=== PATIENT | female | born 1940 | race Caucasian/White ===

== ENCOUNTER → 2016-10-26 | Outpatient (CLI) | payer MEDICARE, OTHER ==
--- NOTE | 2016-10-26 14:00 | CT ---
EXAM DESCRIPTION: CT HEAD WITHOUT IV CONTRAST CLINICAL HISTORY: HEADACHE COMPARISON: None available TECHNIQUE: Non contrast cranial CT was performed. FINDINGS: Ventricles and sulci are unremarkable. No abnormal extra-axial fluid. There is no hemorrhage or mass. There are no white matter abnormalities noted on today's study. The calvarium is intact. The visualized paranasal sinuses and the mastoids are clear. IMPRESSION: Today's CT is essentially unremarkable with no findings to account for patient's headache. Electronically signed by: Som Bruno MD 10/26/2016 13:58
--- NOTE | 2016-10-26 14:53 | US ---
EXAM DESCRIPTION: US CAROTID DOPPLER BILATERAL CLINICAL HISTORY: CAROTID BRUIT COMPARISON: None Available. TECHNIQUE: Carotid Doppler ultrasound was performed. Is Consultant grayscale, color Doppler and spectral Doppler images were saved to the patient's medical record. FINDINGS: Minimal atherosclerotic plaque noted within bilateral distal common carotid arteries and proximal internal carotid arteries. The peak systolic velocity of the right common carotid artery is 86, the left is 1 L 1. The peak systolic velocity of the right internal carotid artery is 114, the left is 127. Antegrade flow within bilateral vertebral arteries. IMPRESSION: Elevated velocity noted within the left internal carotid artery. This is compatible with stenosis measuring 50-69% within the left carotid system. Atherosclerotic disease results in 1-49% stenosis of the right carotid system. Electronically signed by: Som Bruno MD 10/26/2016 14:52
== END ==
LOC: CT 13:18
PROVIDERS: ATTEND Family Medicine
DX: R51 Headache (principal); I65.21 Occlusion and stenosis of right carotid artery

== ENCOUNTER → 2016-11-06 | Outpatient (CLI) | payer MEDICARE, OTHER ==
--- NOTE | 2016-11-06 11:38 | CT ---
EXAM DESCRIPTION: Neck CT. CLINICAL HISTORY: Carotid artery stenosis COMPARISON: October 26, 2015. TECHNIQUE: CT angiogram of the neck was performed. The raw data was manipulated into 3D MIP rotational images of the carotid arteries. Stenosis was calculated using NASCET criteria. FINDINGS: The lung apices are clear. The osseous structures demonstrate degenerative change at C5-6 and C6-7. There is no lymphadenopathy by size criteria within the neck. The tongue, base of tongue and floor of mouth are unremarkable. The epiglottis, bilateral AE folds, true and false cords are symmetrical and unremarkable. The origins of bilateral common carotid arteries are unremarkable. The course and caliber of bilateral common carotid arteries are unremarkable. The right carotid bulb demonstrates only minimal intimal thickening. There is minimal calcified plaque seen within the lateral aspect of the left carotid bulb. There is no significant narrowing on today's exam within bilateral carotid arteries. Bilateral cervical internal carotid arteries demonstrate smooth tapering throughout their courses without evidence of abrupt caliber change to suggest pseudoaneurysm or intimal dissection. No evidence of fibromuscular dysplasia. Atherosclerotic disease seen within bilateral cavernous internal carotid arteries, non flow rate limiting. Limited images of the intracranial vessels demonstrate no aneurysm greater than 3-4 mm in diameter. Bilateral vertebral arteries are codominant and unremarkable. IMPRESSION: Findings on today's exam demonstrate only minimal atherosclerotic disease within the left carotid bulb and minimal intimal thickening within bilateral carotid bulbs. There is no considerable stenosis within bilateral carotid systems. These findings do not support what was found on the ultrasound from October 26, 2015. Degenerative change of cervical spine at C5-6 and C6-7. The remaining study is unremarkable. Electronically signed by: Som Bruno MD 11/06/2016 11:36
== END | disposition home or self-care (01) ==
LOC: CT 08:25
PROVIDERS: ATTEND Family Medicine
DX: I65.21 Occlusion and stenosis of right carotid artery (principal); I25.10 Atherosclerotic heart disease of native coronary artery without angina pectoris

== ENCOUNTER → 2016-12-07 | Outpatient (CLI) | payer MEDICARE, OTHER ==
--- NOTE | 2016-12-07 10:22 | US ---
EXAM DESCRIPTION: Renal Arteries CLINICAL HISTORY: 76 years Female, HYPERTENSION COMPARISON: None. TECHNIQUE: Radius scale, color Doppler and spectral Doppler imaging of the renal arteries was performed as per renal artery stenosis protocol. Stenosis was calculated indirectly based on peak systolic velocity and resistive index in FINDINGS: The mid right renal artery demonstrates a peak systolic velocity of 181 cm/s. The proximal right renal artery demonstrates a peak systolic velocity of 211 cm/s. The left proximal renal artery demonstrates a peak systolic velocity of 262 cm/s. The mid left renal artery demonstrates a peak systolic velocity of 214 cm/s. The distal left renal artery is not visualized. The abdominal aorta demonstrates a peak systolic velocity of 6.3 cm in diameter. IMPRESSION: Today's exam demonstrates suggestion of renal artery stenosis within bilateral renal arteries as there are elevated velocities noted. This could account for patient's hypertension. Additionally there is elongated acceleration time of greater than 0.07 seconds within bilateral renal arteries. Electronically signed by: Som Bruno MD 12/07/2016 10:21 AM TECHNICAL EDITOR
== END ==
LOC: US 07:50
PROVIDERS: ATTEND Family Medicine
DX: I10 Essential (primary) hypertension (principal); N18.4 Chronic kidney disease, stage 4 (severe)

== ENCOUNTER → 2016-12-19 | Outpatient (CLI) | payer MEDICARE, OTHER ==
--- NOTE | 2016-12-19 15:05 | CT ---
EXAM DESCRIPTION: CTA Abdomen CLINICAL HISTORY: Atherosclerosis of renal artery COMPARISON: None Available TECHNIQUE: CTA of the abdomen and Pelvis was performed with IV contrast including 3-D reformatted images. FINDINGS: There is no abdominal aortic aneurysm or dissection. There is fairly advanced stenosis of the proximal aspect of the celiac axis. The superior mesenteric artery is unremarkable. There is calcification at the origin of the right renal artery resulting in moderate short segment stenosis. There is no right renal cortical atrophy. There are paired, somewhat small left renal arteries without focal left renal artery stenosis. Mild left renal cortical thinning is noted. The inferior mesenteric artery is perfused. There are 2 small hepatic cysts. Visualized portions of the GI tract are unremarkable. The exam is otherwise unremarkable for arterial phase technique. IMPRESSION: Calcification at the origin of the right renal artery resulting in moderate right-sided renal artery stenosis. No right renal atrophy. Paired, somewhat small left renal arteries, but no focal left renal artery stenosis. 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 Electronically signed by: Tyron iSnger MD 12/19/2016 3:04 PM CDT
== END | disposition home or self-care (01) ==
LOC: CT 13:11
PROVIDERS: ATTEND Internal Medicine Nephrology
DX: I70.1 Atherosclerosis of renal artery (principal); I10 Essential (primary) hypertension

== ENCOUNTER → 2017-02-06 | Outpatient (CLI) | payer MEDICARE, OTHER | END | disposition home or self-care (01) | LOC: GMAB 10:57 | PROVIDERS: ATTEND Family Medicine | DX: N18.4 Chronic kidney disease, stage 4 (severe) (principal) ==

== ENCOUNTER → 2017-04-27 | Outpatient (CLI) | payer MEDICARE, OTHER | LOC: GMA 13:18 | PROVIDERS: ATTEND Nurse Practitioner Family | DX: N39.0 Urinary tract infection, site not specified (principal) ==

== ENCOUNTER → 2017-06-17 | Outpatient (CLI) | payer MEDICARE, OTHER | END | disposition home or self-care (01) | LOC: GMAB 11:04 | PROVIDERS: ATTEND Family Medicine | DX: E03.9 Hypothyroidism, unspecified (principal) ==

== ENCOUNTER → 2017-06-21 | Outpatient (CLI) | payer MEDICARE, OTHER | END | disposition home or self-care (01) | LOC: GMAB 14:39 | PROVIDERS: ATTEND Family Medicine | DX: M25.531 Pain in right wrist (principal) ==

== ENCOUNTER → 2017-08-01 | Outpatient (CLI) | payer MEDICARE, OTHER ==
--- NOTE | 2017-08-05 17:11 | MAM ---
EXAM DESCRIPTION: 3D Screening BILATERAL : Digital Mammography. CLINICAL HISTORY: 76 years Female SCREENING . No complaints. Remote family history of ovarian cancer. Postmenopausal. Has taken hormone replacement less than 5 years ago. Benign right breast biopsy. COMPARISON: 2-D digital screening bilateral studies on 06/20/2016 and 06/09/2015.. Report from prior examination also reviewed. TECHNIQUE: Bilateral CC and MLO projection full-field images, 3-D tomosynthesis digital mammographic technique. Also bilateral synthesized CC/ MLO full-field images. CAD not utilized. FINDINGS: The breast parenchymal density pattern is: Scattered areas of fibroglandular density. No skin thickening or nipple retraction intramammary lymph node mid right breast. No focal, stellate mass or density, focal asymmetry , and no suspicious microcalcifications bilaterally. Stable mammograms compared to prior study, taking into account differences in mammographic technique IMPRESSION: BI-RADS CATEGORY: 2 - BENIGN FINDINGS. FOLLOW UP: Routine digital bilateral screening, one year interval from July 2017. Written communication explaining the IMPRESSION and follow-up, will be mailed to the patient and referring health care provider. According to the [employer], yearly mammograms are recommended starting at age 40 and continuing as long as a woman is in good health. Any breast change noted on a breast self-exam should be reported promptly to the patient's healthcare provider. Breast MRI is recommended for women with an approximately 20-25% or greater lifetime risk of breast cancer, including women with a strong family history of breast or ovarian cancer and women who have been treated for Hodgkin's disease. A negative mammographic report should not delay tissue diagnosis in patients with significant clinical history or physical findings. Extremely dense breast tissue limits the sensitivity of digital mammography. Electronically signed by: Narinder Dennison MD 08/05/2017 5:09 PM [facility]
== END ==
LOC: MAMMO 12:35
PROVIDERS: ATTEND Obstetrics & Gynecology
DX: Z12.31 Encounter for screening mammogram for malignant neoplasm of breast (principal)
CPT/HCPCS: 77063; G0202

== ENCOUNTER → 2018-06-16 | Outpatient (CLI) | payer MEDICARE, OTHER | LOC: GMAE 10:39 | PROVIDERS: ATTEND Family Medicine | DX: E03.9 Hypothyroidism, unspecified (principal) ==

== ENCOUNTER → 2018-08-04 | Outpatient (CLI) | payer MEDICARE, OTHER ==
--- NOTE | 2018-08-05 21:44 | MAM ---
EXAM DESCRIPTION: 3D Screening BILATERAL : Digital Mammography. CLINICAL HISTORY: 77 years Female SCREENING . No complaints or personal history of breast cancer. Remote family history of breast cancer. Childbirth. Postmenopausal. Taking HRT 5 or more years ago. Benign right breast biopsy.. Lifetime risk of developing breast cancer (Tyrer-Cuzick model)(%): 2.8. COMPARISON: Bilateral screening digital breast tomosynthesis 08/01/2017. TECHNIQUE: Bilateral CC and MLO projection full-field images, digital tomosynthesis mammographic technique. Bilateral digital 2-D full-field MLO images. CAD not available for tomosynthesis or 2-D images. FINDINGS: The breast parenchymal density pattern is: Scattered areas of fibroglandular density. No skin thickening or nipple retraction. Intramammary lymph node middle third of the right breast. No new focal, stellate mass or density, focal asymmetry , and no suspicious microcalcifications bilaterally. Stable mammograms compared to prior study. IMPRESSION: Benign exam. BIRAD CATEGORY: 2 BENIGN FINDINGS. RECOMMENDATIONS: FOLLOW UP: Routine digital bilateral mammographic screening, one year interval from July 2018. Written communication explaining the IMPRESSION and follow-up, will be mailed to the patient and referring health care provider. According to the [employer], yearly mammograms are recommended starting at age 40 and continuing as long as a woman is in good health. Any breast change noted on a breast self-exam should be reported promptly to the patient's healthcare provider. Breast MRI is recommended for women with an approximately 20-25% or greater lifetime risk of breast cancer, including women with a strong family history of breast or ovarian cancer and women who have been treated for Hodgkin's disease. A negative mammographic report should not delay tissue diagnosis in patients with significant clinical history or physical findings. Extremely dense breast tissue limits the sensitivity of digital mammography. 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
== END ==
LOC: MAMMO 13:06
DX: Z12.31 Encounter for screening mammogram for malignant neoplasm of breast (principal)

== ENCOUNTER → 2018-11-18 | Emergency (ER) | payer MEDICARE, OTHER | LOC: ER 22:45 | DX: I10 Essential (primary) hypertension (principal); Z53.21 Procedure and treatment not carried out due to patient leaving prior to being seen by health care provider ==

== ENCOUNTER → 2018-12-16 | Outpatient (CLI) | payer MEDICARE, OTHER | LOC: GMAE 11:02 | PROVIDERS: ATTEND Family Medicine | DX: E03.9 Hypothyroidism, unspecified (principal) ==

== ENCOUNTER 2018-12-21 16:10 | Emergency (ER) | payer MEDICARE, OTHER ==
--- NOTE | 2018-12-21 16:42 | ED.PDOC ---
History of Present Illness - General Chief Complaint: Respiratory Problem Stated Complaint: wheezing,shortness of breath Time Seen by Provider: 12/21/18 16:35 Source: patient, RN notes reviewed, Vital Signs reviewed Additional Information: 78 YEAR OLD PRESENTS WITH THE FOLLOWING SYMPTOMS SHE WAS TREATED FOR UTI WITH BACTRIM BY HER PHYSICIAN DR JASSO IT APPEARS SHE WAS GIVEN BACTRIM DS STARTED 4 DAYS AGO SHE HAS BEEN TAKING PRESCRIBED SHE NOW THINKS SHE IS ALLERGIC TO THAT MEDICATION SHE HAS EXPERIENCED CHEST CONGESTION BUT NO DIFFICULTY BREATHING ANXIETY LAST 2 NIGHTS THAT SHE COULD NOT SLEEP WELL BUT SHE HAS NO SKIN RASH NO SWELLING NO REDNESS NO DIFFICULTY SWALLOWING PE ALERT ORIENTED ANXIOUS ORAL EXAM NO SWELLING NO EDEMA NORAL UPPER AIRWAY LUNGS CLEAR NO WHEEZING OR RHONCHI ABD SOFT NON TENDER NO CVA TENDERNESS 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 NON FOCAL SKIN NORMAL NO RASH - History of Present Illness Timing/Duration: 24 hours Severity: mild Improving Factors: nothing Associated Symptoms: denies symptoms Allergies/Adverse Reactions: Allergies Codeine Allergy (Verified 12/15/13 09:16) Hydrocodone [From Vicodin] Allergy (Verified 12/15/13 09:16) Ketorolac Tromethamine [From Toradol] Allergy (Verified 12/15/13 09:16) Home Medications: Ambulatory Orders Aspirin [Aspirin 81] 162 mg PO DAILY 12/15/13 Calcium 1 tab PO DAILY 12/15/13 Levothyroxine Sodium 100 mcg PO DAILY 12/15/13 Multiple Vitamins W/ Minerals [Megavite Fruits & Veggies] 1 tab PO DAILY 12/15/13 Losartan Potassium 100 mg PO DAILY #0 12/16/13 Flaxseed Oil-Fish Oil-Borage O [Fish/Flax/Borage Oils] 1 cap PO DAILY 01/03/15 Propranolol LA [Inderal LA] 60 mg PO DAILY 01/03/15 Estrogens, Conjugated Vaginal [Premarin] 0.625 mg VA BIW 02/06/16 Review of Systems - Review of Systems Constitutional: States: no symptoms reported EENTM: States: no symptoms reported Respiratory: States: no symptoms reported Cardiology: States: no symptoms reported Gastrointestinal/Abdominal: States: no symptoms reported Genitourinary: States: no symptoms reported Skin: States: no symptoms reported Neurological: States: no symptoms reported Endocrine: States: no symptoms reported Hematologic/Lymphatic: States: no symptoms reported Past Medical History (General) - Patient Medical History Hx Asthma: Yes Hx of COPD: No Hx Cardiac Disorders: Yes - Mitral Valve Problem Hx Congestive Heart Failure: No Hx Hypertension: Yes Hx Thyroid Disease: Yes Hx Diabetes: No Hx MRSA: No Surgical History: cholecystectomy, Hysterectomy - Vaccination History Hx Tetanus, Diphtheria Vaccination: No Hx Influenza Vaccination: Yes Hx Pneumococcal Vaccination: Yes - Social History Hx Tobacco Use: Yes Hx Alcohol Use: No Family Medical History - Family History Mother Family History: Unknown Physical Exam - Physical Exam General Appearance: Alert, Comfortable Eye Exam: bilateral normal Ears, Nose, Throat: hearing grossly normal, normal ENT inspection, normal pharynx Neck: non-tender, full range of motion, supple Respiratory: chest non-tender, lungs clear, normal breath sounds, no respiratory distress, no accessory muscle use Cardiovascular/Chest: normal peripheral pulses, regular rate, rhythm, no edema, no gallop, no JVD Peripheral Pulses: radial,right: 2+, radial,left: 2+, femoral,right: 2+, femoral,left: 2+ Gastrointestinal/Abdominal: normal bowel sounds, non tender, soft, no organomegaly 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 Copy, Patient Portal Self Enrollment Diet: resume usual diet Referrals: PAVEL JASSO MD [Primary Care Provider] - 1-2 Weeks Home Medications: Ambulatory Orders Aspirin [Aspirin 81] 162 mg PO DAILY 12/15/13 Calcium 1 tab PO DAILY 12/15/13 Levothyroxine Sodium 100 mcg PO DAILY 12/15/13 Multiple Vitamins W/ Minerals [Megavite Fruits & Veggies] 1 tab PO DAILY 12/15/13 Losartan Potassium 100 mg PO DAILY #0 12/16/13 Flaxseed Oil-Fish Oil-Borage O [Fish/Flax/Borage Oils] 1 cap PO DAILY 01/03/15 Propranolol LA [Inderal LA] 60 mg PO DAILY 01/03/15 Estrogens, Conjugated Vaginal [Premarin] 0.625 mg VA BIW 02/06/16 Comments: PT ADVISED TO FOLLOW UP WITH HER MD SUGGESTED TO DRINK FLUIDS CRANBERRY JUICE PERHAPS TAKE HALF THE DOSE OF BACTRIM TILL HER PCP DOCTORS ADVICE SHE THINKS BACTRIM DS IS TOO MUCH FOR HER
[2018-12-21 18:11] VITALS: BP 163/64; TEMP 98.4; O2SAT 98
== END 2018-12-21 18:10 | disposition home or self-care (01) ==
LOC: ER 16:10
DX: N39.0 Urinary tract infection, site not specified (principal); I05.9 Rheumatic mitral valve disease, unspecified; J45.909 Unspecified asthma, uncomplicated; I10 Essential (primary) hypertension; E07.9 Disorder of thyroid, unspecified; Z79.82 Long term (current) use of aspirin; Z79.899 Other long term (current) drug therapy; Z87.891 Personal history of nicotine dependence; Z88.5 Allergy status to narcotic agent

== ENCOUNTER → 2019-01-14 | Outpatient (CLI) | payer MEDICARE, OTHER ==
[~2019-01-14] MED LIST: LEVALBUTEROL NEBS 0.63 MG/3 ML VIAL NEB ONE
== END ==
LOC: RESP 09:58
PROVIDERS: ATTEND Family Medicine
DX: R06.02 Shortness of breath (principal)
CPT/HCPCS: 94060; J7614

== ENCOUNTER 2019-05-11 11:09 | Emergency (ER) | payer MEDICARE, OTHER ==
[2019-05-11 11:14] VITALS: TEMP 96.8
[2019-05-11] MEDS ORDERED: SODIUM CHLORIDE 0.9% 500ML 500 ML IVS ONE (11:20)
--- NOTE | 2019-05-11 11:39 | RAD ---
EXAM DESCRIPTION: Chest,1 View CLINICAL HISTORY: 78 years Female, pain COMPARISON: January 12, 2019. TECHNIQUE: AP portable chest. FINDINGS: Lungs are clear. No consolidation. Heart normal size. Elevation of the right hemidiaphragm is new since comparison IMPRESSION: New onset elevation right hemidiaphragm. Recommend CT chest with contrast. Electronically signed by: Jayson Lindsay MD 05/11/2019 11:38 AM CDT
--- NOTE | 2019-05-11 12:02 | ED.PDOC ---
History of Present Illness - General Chief Complaint: Chest Pain/OR Stated Complaint: Chest pressure Time Seen by Provider: 05/11/19 11:13 Source: patient Exam Limitations: no limitations - History of Present Illness Initial Comments: [place] G[place]a 78 y/o female stated that she had on and off chest pressure the last 2 1/2 days lasting for about 15 -20 minutes then with radiation to her back and lower abdomen and with pain on deep breathing no cough no diaphoresis..Then on waking up this am chest pressure not going away took one NTG after calling his business employment specialist in . Scheduled for cardiac cath 13 May 2019 in ;Had positive nuclear stress test 07 May 2019.Had cardiac cath in 2013-no major blockage noted at that time done by Dr. Caruso. Timing/Duration: days - 2 1 Severity: moderate Location: central Activities at Onset: activity Prior Chest Pain/Cardiac Workup: cardiac cath - 2013, stress test - scheduled Improving Factors: rest Worsening Factors: movement Nitro Today/Relief: 0.4 mg x 1, provided at home, mild relief Aspirin Treatment Today: 81 mg x 4 Associated Symptoms: other - see hpi Allergies/Adverse Reactions: Allergies Codeine Allergy (Verified 12/15/13 09:16) Hydrocodone [From Vicodin] Allergy (Verified 12/15/13 09:16) Ketorolac Tromethamine [From Toradol] Allergy (Verified 12/15/13 09:16) Home Medications: Ambulatory Orders Aspirin [Aspirin 81] 81 mg PO DAILY 12/15/13 Levothyroxine Sodium 100 mcg PO DAILY 12/15/13 Multiple Vitamins W/ Minerals [Megavite Fruits & Veggies] 1 tab PO DAILY 12/15/13 Flaxseed Oil-Fish Oil-Borage O [Fish/Flax/Borage Oils] 1 cap PO DAILY 01/03/15 Propranolol LA [Inderal LA] 60 mg PO DAILY 01/03/15 Estrogens, Conjugated Vaginal [Premarin] 0.625 mg VA BIW 02/06/16 Atorvastatin Calcium [Lipitor] 10 mg PO DAILY 05/11/19 Clopidogrel Bisulfate [Plavix] 75 mg PO DAILY 05/11/19 Omeprazole 20 mg PO BID 05/11/19 Pantoprazole Sodium 40 mg PO DAILY 05/11/19 Sucralfate 1 gm PO ACHS 05/11/19 Review of Systems - Review of Systems Constitutional: States: no symptoms reported EENTM: States: no symptoms reported Respiratory: States: no symptoms reported Cardiology: States: see HPI Gastrointestinal/Abdominal: States: no symptoms reported Genitourinary: States: no symptoms reported Musculoskeletal: States: no symptoms reported Skin: States: no symptoms reported Neurological: States: no symptoms reported Endocrine: States: no symptoms reported All other Systems: Reviewed and Negative, No Change from Baseline Past Medical History (General) - Patient Medical History Hx Stroke: No Hx Asthma: Yes Hx of COPD: No Hx Cardiac Disorders: Yes - Mitral valve leaks Hx Congestive Heart Failure: No Hx Hypertension: Yes Hx Thyroid Disease: Yes Hx Diabetes: No Hx Cancer: Yes - Skin CA Hx MRSA: No Surgical History: cholecystectomy, Hysterectomy, other - cataract - Vaccination History Hx Tetanus, Diphtheria Vaccination: No Hx Influenza Vaccination: Yes - 2018 Hx Pneumococcal Vaccination: Yes - Social History Hx Tobacco Use: No Hx Alcohol Use: No Hx Physical Abuse: No Hx Emotional Abuse: No - Activities of Daily Living Patient Lives Alone: No Grooming Ability: Independent Eating (Feeding) Ability: Independent Toileting Ability: Independent Family Medical History - Family History Mother Family History: Unknown Living Status: Hx Cardiac Disease: Yes - dad-OR 78 y/o Physical Exam - Physical Exam General Appearance: Alert, Comfortable, No apparent distress Eyes, Ears, Nose, Throat Exam: normal ENT inspection, pharynx normal Neck: non-tender, full range of motion, supple, normal inspection Respiratory: chest non-tender, lungs clear, normal breath sounds, no respiratory distress Cardiovascular/Chest: normal peripheral pulses, regular rate, rhythm, no murmur Peripheral Pulses: radial,right: 2+, radial,left: 2+ Gastrointestinal/Abdominal: normal bowel sounds, non tender, soft, no organomegaly Extremity: non-tender, no pedal edema, no calf tenderness Neurologic: alert, oriented x 3 Skin Exam: normal color, warm/dry Progress - Progress Progress: 05/11/19 12:07 Vital Signs - 24 hr 05/11/19 11:13 Temperature 96.8 F L Pulse Rate [ 66 Left Radial] Respiratory 18 Rate Blood Pressure 103/82 [Left Arm] O2 Sat by Pulse 95 Oximetry - Results/Orders Results/Orders: 05/11/19 11:55 CARDIAC ENZYME GROUP Stat HEPATIC FUNCTION PANEL Stat 05/11/19 12:00 EKG STAT 05/11/19 13:00 Be Our Guest Tray (BOG) ONCE 05/11/19 13:20 URINALYSIS Stat Laboratory Results - last 24 hr 05/11/19 05/11/19 05/11/19 11:27 11:27 11:27 WBC 4.7 L RBC 4.65 Hgb 14.7 Hct 42.7 MCV 91.9 MCH 31.7 H MCHC 34.5 RDW 12.9 Plt Count 187 PT 10.3 INR 1.03 PTT (SP) 20.5 L D-Dimer, Quantitative 0.32 Total Bilirubin Direct Bilirubin Indirect Bilirubin AST ALT Alkaline Phosphatase Creatine Kinase Troponin I Serum Total Protein Albumin 05/11/19 11:55 WBC RBC Hgb Hct MCV MCH MCHC RDW Plt Count PT INR PTT (SP) D-Dimer, Quantitative Total Bilirubin 0.8 Direct Bilirubin 0.1 Indirect Bilirubin 0.7 AST 23 ALT 14 Alkaline Phosphatase 52 Creatine Kinase 25 L Troponin I 0.01 Serum Total Protein 6.1 L Albumin 3.9 - EKG/XRAY/CT EKG: Sinus, no ST T wave changes Comments: HR-67 XRAY: chest - elevation right hemidiapragm. Departure - Departure Clinical Impression: Chest pressure, Abnormal nuclear cardiac imaging test Time of Disposition: 14:19 Disposition: Transfer to Hospital Condition: Fair Departure Forms: Patient Portal Self Enrollment Referrals: PAVEL JASSO MD [Primary Care Provider] - 1-2 Weeks Home Medications: Ambulatory Orders Aspirin [Aspirin 81] 81 mg PO DAILY 12/15/13 Levothyroxine Sodium 100 mcg PO DAILY 12/15/13 Multiple Vitamins W/ Minerals [Megavite Fruits & Veggies] 1 tab PO DAILY 12/15/13 Flaxseed Oil-Fish Oil-Borage O [Fish/Flax/Borage Oils] 1 cap PO DAILY 01/03/15 Propranolol LA [Inderal LA] 60 mg PO DAILY 01/03/15 Estrogens, Conjugated Vaginal [Premarin] 0.625 mg VA BIW 02/06/16 Atorvastatin Calcium [Lipitor] 10 mg PO DAILY 05/11/19 Clopidogrel Bisulfate [Plavix] 75 mg PO DAILY 05/11/19 Omeprazole 20 mg PO BID 05/11/19 Pantoprazole Sodium 40 mg PO DAILY 05/11/19 Sucralfate 1 gm PO ACHS 05/11/19 Transfer to Outside Facility - Transfer Information Accepting Provider:: Dr. Santillan-Stretch Machine Operator Accepting Facility: [facility] Reason for Transfer: required specialist not available - KEY ENTRY OPERATOR
[2019-05-11 15:36] VITALS: BP 152/62; O2SAT 94
== END 2019-05-11 14:50 | disposition short-term general hospital (02) ==
LOC: ER 11:09
DX: R07.89 Other chest pain (principal); R94.39 Abnormal result of other cardiovascular function study; I05.8 Other rheumatic mitral valve diseases; E07.9 Disorder of thyroid, unspecified; I10 Essential (primary) hypertension; J45.909 Unspecified asthma, uncomplicated; Z85.828 Personal history of other malignant neoplasm of skin; Z79.82 Long term (current) use of aspirin; Z79.899 Other long term (current) drug therapy; Z88.5 Allergy status to narcotic agent
CPT/HCPCS: 71045; 80076; 81001; 82550; 82553; 84484; 85379; 85610; 85730; 93005; J7040

== ENCOUNTER → 2019-08-05 | Outpatient (CLI) | payer MEDICARE, OTHER ==
--- NOTE | 2019-08-10 16:05 | MAM ---
EXAM DESCRIPTION: 3D Screening BILATERAL : Digital Mammography. CLINICAL HISTORY: 78 years Female ANNUAL SCREENING . No complaints. No personal or family history of breast cancer. Menarche age 11. Childbirth. Postmenopausal unknown duration. HRT 5 or more years ago. Prior benign right breast biopsy.. Lifetime risk of developing breast cancer (Tyrer-Cuzick model)(%): 3.2. COMPARISON: Bilateral screening digital breast tomosynthesis 04 August 2018 and 01 August 2017. TECHNIQUE: Bilateral CC and MLO projection full-field images, digital tomosynthesis mammographic technique. Bilateral digital 2-D full-field MLO images. CAD not available for tomosynthesis or 2-D images. FINDINGS: The breast parenchymal density pattern is: Scattered areas of fibroglandular density. No skin thickening or nipple retraction. Stable nodular density anterior upper lateral quadrant right breast. No new focal, stellate mass or density, focal asymmetry , and no suspicious microcalcifications bilaterally. Stable mammograms compared to prior study. IMPRESSION: Benign exam. BIRAD CATEGORY: 2 BENIGN FINDINGS. RECOMMENDATIONS: FOLLOW UP: Routine digital bilateral mammographic screening, one year interval from July 2019. Written communication explaining the IMPRESSION and follow-up, will be mailed to the patient and referring health care provider. According to the [employer], yearly mammograms are recommended starting at age 40 and continuing as long as a woman is in good health. Any breast change noted on a breast self-exam should be reported promptly to the patient's healthcare provider. Breast MRI is recommended for women with an approximately 20-25% or greater lifetime risk of breast cancer, including women with a strong family history of breast or ovarian cancer and women who have been treated for Hodgkin's disease. A negative mammographic report should not delay tissue diagnosis in patients with significant clinical history or physical findings. Extremely dense breast tissue limits the sensitivity of digital mammography. 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
== END ==
LOC: MAMMO 11:30
PROVIDERS: ATTEND Obstetrics & Gynecology
DX: Z12.31 Encounter for screening mammogram for malignant neoplasm of breast (principal)

== ENCOUNTER → 2019-08-11 | Outpatient (CLI) | payer MEDICARE, OTHER | LOC: GMAE 10:46 | PROVIDERS: ATTEND Family Medicine | DX: E03.9 Hypothyroidism, unspecified (principal); I10 Essential (primary) hypertension ==

== ENCOUNTER 2019-11-21 01:53 | Emergency (ER) | payer MEDICARE, OTHER ==
[2019-11-21] MEDS ORDERED: SODIUM CHLORIDE 0.9% IVS ONE (02:22)
[2019-11-21] MEDS ORDERED: ACETAMINOPHEN 500 MG TAB PO ONE (02:22)
[2019-11-21] MEDS ORDERED: SODIUM CHLORIDE 0.9% (FLUSH) 10 ML SYG IV PRN (02:22)
--- NOTE | 2019-11-21 02:30 | ED.PDOC ---
History of Present Illness - General Chief Complaint: General Stated Complaint: trouble urinating and shortness of breath Time Seen by Provider: 11/21/19 02:21 Source: patient Exam Limitations: no limitations - History of Present Illness Initial Comments: 79 yo F who presents for not feeling well. States she was dx with a UTI yesterday, prescribed macrobid, associated urinary frequency, dysuria. Started to feel ill this evening and very uncomfortable. On arrival pt was noted to be have mild tachypnea after using the bathroom for a urine sample, when placed on monitor she was saturating 88% on RA, pt states at that time she was having SOB. Denies SOB now that she is on oxygen and oxygen saturation wnl. Pt is unsure of fever at home. Recent loose stool. Reports chronic cough with extensive workup that has been unremarkable. Hx of kidney stone. Recent cath that showed 40% blockage "in the back of my heart." Denies hx of ND, DVT, PE. Denies congestion, CP, abd pain, n/v, hematuria, edema, flank pain. Allergies/Adverse Reactions: Allergies Codeine Allergy (Verified 11/21/19 02:10) Hydrocodone [From Vicodin] Allergy (Verified 11/21/19 02:10) Ketorolac Tromethamine [From Toradol] Allergy (Verified 11/21/19 02:10) Home Medications: Ambulatory Orders Aspirin [Aspirin 81] 81 mg PO DAILY 12/15/13 Levothyroxine Sodium 100 mcg PO DAILY 12/15/13 Multiple Vitamins W/ Minerals [Megavite Fruits & Veggies] 1 tab PO DAILY 12/15/13 Flaxseed Oil-Fish Oil-Borage O [Fish/Flax/Borage Oils] 1 cap PO DAILY 01/03/15 Propranolol LA [Inderal LA] 60 mg PO DAILY 01/03/15 Estrogens, Conjugated Vaginal [Premarin] 0.625 mg [place] BIW 02/06/16 Atorvastatin Calcium [Lipitor] 10 mg PO DAILY 05/11/19 Clopidogrel Bisulfate [Plavix] 75 mg PO DAILY 05/11/19 Omeprazole 20 mg PO BID 05/11/19 Pantoprazole Sodium 40 mg PO DAILY 05/11/19 Sucralfate 1 gm PO ACHS 05/11/19 Albuterol Inhaler [Ventolin Hfa Inhaler] 2 puff INH Q4H #1 inh 11/21/19 Cefdinir [Omnicef] 300 mg PO BID 10 Days cap 11/21/19 Review of Systems - Review of Systems Constitutional: States: fever - ?unsure. Denies: diaphoresis EENTM: Denies: ear pain, nose congestion, throat pain Respiratory: States: cough, short of breath Cardiology: Denies: chest pain, palpitations, syncope Gastrointestinal/Abdominal: States: diarrhea. Denies: abdominal pain, constipation, nausea, vomiting Genitourinary: States: dysuria, frequency Musculoskeletal: Denies: back pain, neck pain Skin: Denies: lesions, rash Neurological: Denies: headache, numbness, weakness Endocrine: Denies: increased thirst, increased urine Past Medical History (General) - Patient Medical History Hx Seizures: No Hx Stroke: No Hx Dementia: No Hx Asthma: Yes Hx of COPD: No Hx Cardiac Disorders: Yes - Mitral valve leaks Hx Congestive Heart Failure: No Hx Pacemaker: No Hx Hypertension: Yes Hx Thyroid Disease: Yes Hx Diabetes: No Hx Gastroesophageal Reflux: No Hx Renal Disease: No Hx Cancer: Yes - Skin CA Hx of HIV: No Hx Hepatitis C: No Hx MRSA: No Surgical History: cholecystectomy, Hysterectomy - Vaccination History Hx Tetanus, Diphtheria Vaccination: Yes Hx Influenza Vaccination: Yes Hx Pneumococcal Vaccination: Yes Immunizations Up to Date: Yes - Social History Hx Tobacco Use: No Hx Alcohol Use: No Hx Substance Use: No Hx Substance Use Treatment: No Hx Depression: No Feels Threatened In Home Enviroment: No Feels Threatened In a Relationship: No Hx Physical Abuse: No Hx Emotional Abuse: No Hx Suspected Abuse: No - Activities of Daily Living Hospice Agency (if applicable):: None - Female History Patient is a Female of Child Bearing Age (10 -59 yrs old): No Family Medical History - Family History Mother Family History: Unknown Living Status: Hx Cardiac Disease: Yes - dad-ND 79 y/o Physical Exam - Physical Exam General Appearance: Alert, Comfortable, No apparent distress, Well Developed, Well Nourished Eye Exam: bilateral normal Ears, Nose, Throat: normal ENT inspection Neck: full range of motion, supple Respiratory: lungs clear, normal breath sounds, no respiratory distress, no accessory muscle use Cardiovascular/Chest: normal peripheral pulses, regular rate, rhythm, no edema, no gallop, no JVD, no murmur Peripheral Pulses: radial,right: 2+, radial,left: 2+ Gastrointestinal/Abdominal: normal bowel sounds, non tender, soft, no organomegaly, no pulsatile mass, other - No guarding, rebound, distension. Back Exam: normal inspection, no CVA tenderness, no vertebral tenderness Extremity: normal range of motion, non-tender, normal inspection, no pedal edema, no calf tenderness, normal capillary refill Neurologic: no motor/sensory deficits, alert, normal mood/affect, oriented x 3 Skin Exam: normal color, warm/dry Progress - Progress Progress: I have explained and reviewed all results with the pt. Pt well appearing, 93% on RA, will duoneb prior to d/c for comfort. Offered admission, pt and decline. I explained that emergent conditions may arise and to return to the ER for new, worsening, or any persistent conditions. I've explained the importance of f/u for recheck. All questions and concerns addressed at this time. Pt understands and agrees with plan. Pt well appearing, NAD, is stable for discharge. Jolanta Rodriguez MD Emergency Medicine Physician Billing Number [id number] - Results/Orders Results/Orders: 11/21/19 02:15 EKG STAT 11/21/19 02:22 IV Care:Saline Lock per Protoc QSHIFT Telemetry .ONCE Sodium Chloride 0.9% (Flush) [Saline Flush Syringe] 10 ml IV PRN PRN Pulse Ox Stat 11/21/19 02:45 BLOOD CULTURE Stat 11/21/19 04:19 Hold Metformin x 48Hrs [id number] Laboratory Results - last 24 hr 11/21/19 11/21/19 11/21/19 02:20 02:45 02:45 WBC 8.6 RBC 4.40 Hgb 13.7 Hct 40.3 MCV 91.6 MCH 31.1 H MCHC 34.0 RDW 13.1 Plt Count 99 L MPV 9.7 Absolute Neuts (auto) 8.20 H Absolute Lymphs (auto) 0.10 L Absolute Monos (auto) 0.20 Absolute Eos (auto) 0.10 Absolute Basos (auto) 0.00 Neutrophils % 95.1 H Lymphocytes % 1.1 L Monocytes % 2.5 Eosinophils % 1.1 Basophils % 0.2 D-Dimer, Quantitative Sodium 135 Potassium 3.6 Chloride 101 Carbon Dioxide 26 Anion Gap 11.6 L BUN 24 H Creatinine 0.54 L BUN/Creatinine Ratio 44.4 H Random Glucose 130 H Serum Osmolality 275.9 Lactic Acid Calcium 9.4 Total Bilirubin 1.0 AST 53 H ALT 43 Alkaline Phosphatase 67 Troponin I Serum Total Protein 6.2 L Albumin 4.0 Globulin 2.2 L Albumin/Globulin Ratio 1.8 Urine Color Yellow Urine Appearance Clear Urine pH 5.5 Ur Specific [place] 1.020 Urine Protein Negative Urine Glucose (UA) Negative Urine Ketones 15 H Urine Blood Negative Urine Nitrite Negative Urine Bilirubin Negative Urine Urobilinogen 0.2 Ur Leukocyte Esterase Trace H Urine RBC 0 Urine WBC 3-5 H Ur Epithelial Cells 3-5 Urine Bacteria Rare 11/21/19 11/21/19 11/21/19 02:45 02:45 02:45 WBC RBC Hgb Hct MCV MCH MCHC RDW Plt Count MPV Absolute Neuts (auto) Absolute Lymphs (auto) Absolute Monos (auto) Absolute Eos (auto) Absolute Basos (auto) Neutrophils % Lymphocytes % Monocytes % Eosinophils % Basophils % D-Dimer, Quantitative 1440 H* Sodium Potassium Chloride Carbon Dioxide Anion Gap BUN Creatinine BUN/Creatinine Ratio Random Glucose Serum Osmolality Lactic Acid 1.6 Calcium Total Bilirubin AST ALT Alkaline Phosphatase Troponin I 0.02 Serum Total Protein Albumin Globulin Albumin/Globulin Ratio Urine Color Urine Appearance Urine pH Ur Specific [place] Urine Protein Urine Glucose (UA) Urine Ketones Urine Blood Urine Nitrite Urine Bilirubin Urine Urobilinogen Ur Leukocyte Esterase Urine RBC Urine WBC Ur Epithelial Cells Urine Bacteria 11/21/19 11/21/19 05:25 05:25 WBC RBC Hgb Hct MCV MCH MCHC RDW Plt Count MPV Absolute Neuts (auto) Absolute Lymphs (auto) Absolute Monos (auto) Absolute Eos (auto) Absolute Basos (auto) Neutrophils % Lymphocytes % Monocytes % Eosinophils % Basophils % D-Dimer, Quantitative Sodium Potassium Chloride Carbon Dioxide Anion Gap BUN Creatinine BUN/Creatinine Ratio Random Glucose Serum Osmolality Lactic Acid 1.2 Calcium Total Bilirubin AST ALT Alkaline Phosphatase Troponin I 0.03 Serum Total Protein Albumin Globulin Albumin/Globulin Ratio Urine Color Urine Appearance Urine pH Ur Specific [place] Urine Protein Urine Glucose (UA) Urine Ketones Urine Blood Urine Nitrite Urine Bilirubin Urine Urobilinogen Ur Leukocyte Esterase Urine RBC Urine WBC Ur Epithelial Cells Urine Bacteria Microbiology 11/21/19 06:15 Influenza Types A & B (PCR) - Final Nose neg CXR: EXAM DESCRIPTION: Chest,2 Views CLINICAL HISTORY: shortness of breath COMPARISON: 05/11/2019 FINDINGS: Frontal and lateral views of the chest. Cardiomediastinal silhouette: Normal size and contour. Lungs: No consolidation, pneumothorax, or pleural effusion. Bones: No acute osseous abnormality. Minimal elevation of the right hemidiaphragm. Upper abdomen: No abnormality identified. IMPRESSION: 1. No acute pulmonary process identified. Electronically signed by: Harsha Roca 11/21/2019 2:[address] abd/pelvis: CT ABDOMEN AND PELVIS WITH CONTRAST. CLINICAL HISTORY: Abdominal pain. COMPARISON: [None.] TECHNIQUE: Axial CT imaging of the abdomen and pelvis performed with intravenous contrast. Reformatted coronal and sagittal images reviewed. A dose reduction technique was utilized with automated exposure control according to patient size. FINDINGS: Atelectasis/scar in the right lower lobe. Heart is normal in size. There are a few benign-appearing cysts within the liver. The larger is in the left lobe, 1.9 cm. There is no solid mass. There is mild intrahepatic and extra hepatic biliary duct dilatation secondary to post cholecystectomy status. Normal spleen and pancreas. Normal adrenal glands and right kidney. Inferior lateral left renal cortical thinning due to scarring. Nonobstructing inferior left renal pelvic calculi up to 4 mm. Aorta is normal in caliber. Mild aortic atherosclerosis. Normal caliber inferior vena cava. No adenopathy. Mesenteric vessels appear normal. Small hiatal hernia. Normal remaining stomach. Fecal debris throughout multiple small bowel loops without abnormal dilatation. No visualized appendix. Mild colonic diverticulosis the sigmoid colon. No diverticulitis. No ascites or free air. Unremarkable bladder. Uterus is surgically absent. No pelvic free fluid. Mild diffuse disc bulge at all levels from L2 to L5. The disc bulges mildly narrowing the inferior neural foramen bilaterally without nerve root impingement. Vacuum disc at L2-3 with minimal degenerative images of the fixation of L2 on L3. Intact bony pelvis. 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 Asymmetric right sacroiliac sclerosis may be sequela of sacroiliitis. IMPRESSION: 1. Mild small bowel ileus. 2. Mild sigmoid colon diverticulosis. No diverticulitis. 3. Left renal scarring. Nonobstructing left nephroliths. 4. Mild biliary dilatation secondary to post cholecystectomy status. 5. Hepatic cysts. 6. Multilevel mild lumbar diffuse disc bulges. Electronically signed by: Jaclyn Lantigua DO 11/21/2019 5:55 AM [employer] CTA chest: EXAM DESCRIPTION: CTA Chest CLINICAL HISTORY: sob COMPARISON: None Available. TECHNIQUE: CTA of the chest obtained following the uncomplicated intravenous administration of . 3-D/MIP reformatted images of the chest available for evaluation. FINDINGS: Chest: Pulmonary arteries: Contrast bolus is adequate.No filling defects identified in the pulmonary arteries to suggest pulmonary embolus. Thyroid:No abnormalities of the visualized thyroid. Great Vessels:Great vessels have normal anatomic configuration. Thoracic Aorta: Atherosclerotic calcification of the thoracic aorta. Normal caliber. Heart:No cardiomegaly, significant pericardial effusion, or coronary artery atherosclerosis Lymph Nodes:No enlarged mediastinal lymph nodes identified. Esophagus: Small hiatal hernia. Other:No additional findings. Lungs:Respiratory motion artifact. Discoid atelectasis in the right lower lobe. Pleura:No pleural effusion or pneumothorax. Trachea/Airways:No abnormalities of the visualized trachea or airways. Bones:No destructive osseous lesions. Upper Abdomen:Limited images of the upper abdomen demonstrate no definite abnormalities of visualized portions of the pancreas, spleen, adrenal glands, or kidneys. Hepatic cysts. Prior cholecystectomy.. IMPRESSION: 1. No pulmonary embolus. 2. Right lower lobe discoid atelectasis. This exam was performed according to our departmental dose-optimization program, which includes automated exposure control, adjustment of the mA and/or kV according to patient size and/or use of iterative reconstruction technique. Electronically signed by: Harsha Roca 11/21/2019 5:54 AM [employer] Vital Signs - 24 hr 11/21/19 11/21/19 11/21/19 01:55 02:05 03:00 Temperature 101.1 F H Pulse Rate [ 88 84 monitor] Respiratory 24 24 18 Rate Blood Pressure 181/65 130/59 [Left Arm] O2 Sat by Pulse 96 96 Oximetry 11/21/19 11/21/19 11/21/19 03:30 04:00 05:00 Temperature 100.4 F H Pulse Rate [ 83 82 monitor] Respiratory 16 18 Rate Blood Pressure 140/55 132/55 [Left Arm] O2 Sat by Pulse 95 95 Oximetry 11/21/19 06:30 Temperature Pulse Rate [ 70 monitor] Respiratory 18 Rate Blood Pressure 107/48 [Left Arm] O2 Sat by Pulse 92 L Oximetry - EKG/XRAY/CT EKG: Sinus, nonspecific ST T wave Chg Comments: Rate of 86 Departure - Departure Clinical Impression: Febrile illness, acute Time of Disposition: 06:48 Disposition: Discharge to Home or Self Care Health Concerns: condition: stable Departure Forms: ED Discharge - Pt. Copy, Patient Portal Self Enrollment Referrals: PAVEL JASSO MD [Primary Care Provider] - 1-2 Days Prescriptions: Albuterol Inhaler [Ventolin Hfa Inhaler] 2 puff INH Q4H #1 inh Cefdinir [Omnicef] 300 mg PO BID 10 Days cap Home Medications: Ambulatory Orders Aspirin [Aspirin 81] 81 mg PO DAILY 12/15/13 Levothyroxine Sodium 100 mcg PO DAILY 12/15/13 Multiple Vitamins W/ Minerals [Megavite Fruits & Veggies] 1 tab PO DAILY 12/15/13 Flaxseed Oil-Fish Oil-Borage O [Fish/Flax/Borage Oils] 1 cap PO DAILY 01/03/15 Propranolol LA [Inderal LA] 60 mg PO DAILY 01/03/15 Estrogens, Conjugated Vaginal [Premarin] 0.625 mg VA BIW 02/06/16 Atorvastatin Calcium [Lipitor] 10 mg PO DAILY 05/11/19 Clopidogrel Bisulfate [Plavix] 75 mg PO DAILY 05/11/19 Omeprazole 20 mg PO BID 05/11/19 Pantoprazole Sodium 40 mg PO DAILY 05/11/19 Sucralfate 1 gm PO ACHS 05/11/19 Albuterol Inhaler [Ventolin Hfa Inhaler] 2 puff INH Q4H #1 inh 11/21/19 Cefdinir [Omnicef] 300 mg PO BID 10 Days cap 11/21/19 Additional Instructions: Follow up: [facility] As needed, if symptoms worsen
[2019-11-21] MEDS ORDERED: CEFEPIME 2 GM in SODIUM CHL 0.9% 50ML MIN-BAG+ 50 ML IVPB ONE (02:34)
[2019-11-21] MEDS ORDERED: SODIUM CHL 0.9% 50ML MIN-BAG+ 50 ML IVPB ONE (02:46)
[2019-11-21] MEDS ORDERED: CEFEPIME 2 GM VIAL ONE (02:46)
--- NOTE | 2019-11-21 02:50 | RAD ---
EXAM DESCRIPTION: Chest,2 Views CLINICAL HISTORY: shortness of breath COMPARISON: 05/11/2019 FINDINGS: Frontal and lateral views of the chest. Cardiomediastinal silhouette: Normal size and contour. Lungs: No consolidation, pneumothorax, or pleural effusion. Bones: No acute osseous abnormality. Minimal elevation of the right hemidiaphragm. Upper abdomen: No abnormality identified. IMPRESSION: 1. No acute pulmonary process identified. Electronically signed by: Harsha Roca 11/21/2019 2:48 AM [facility]
--- NOTE | 2019-11-21 05:56 | CT ---
CT ABDOMEN AND PELVIS WITH CONTRAST. CLINICAL HISTORY: Abdominal pain. COMPARISON: [None.] TECHNIQUE: Axial CT imaging of the abdomen and pelvis performed with intravenous contrast. Reformatted coronal and sagittal images reviewed. A dose reduction technique was utilized with automated exposure control according to patient size. FINDINGS: Atelectasis/scar in the right lower lobe. Heart is normal in size. There are a few benign-appearing cysts within the liver. The larger is in the left lobe, 1.9 cm. There is no solid mass. There is mild intrahepatic and extra hepatic biliary duct dilatation secondary to post cholecystectomy status. Normal spleen and pancreas. Normal adrenal glands and right kidney. Inferior lateral left renal cortical thinning due to scarring. Nonobstructing inferior left renal pelvic calculi up to 4 mm. Aorta is normal in caliber. Mild aortic atherosclerosis. Normal caliber inferior vena cava. No adenopathy. Mesenteric vessels appear normal. Small hiatal hernia. Normal remaining stomach. Fecal debris throughout multiple small bowel loops without abnormal dilatation. No visualized appendix. Mild colonic diverticulosis the sigmoid colon. No diverticulitis. No ascites or free air. Unremarkable bladder. Uterus is surgically absent. No pelvic free fluid. Mild diffuse disc bulge at all levels from L2 to L5. The disc bulges mildly narrowing the inferior neural foramen bilaterally without nerve root impingement. Vacuum disc at L2-3 with minimal degenerative images of the fixation of L2 on L3. Intact bony pelvis. 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 Asymmetric right sacroiliac sclerosis may be sequela of sacroiliitis. IMPRESSION: 1. Mild small bowel ileus. 2. Mild sigmoid colon diverticulosis. No diverticulitis. 3. Left renal scarring. Nonobstructing left nephroliths. 4. Mild biliary dilatation secondary to post cholecystectomy status. 5. Hepatic cysts. 6. Multilevel mild lumbar diffuse disc bulges. Electronically signed by: Jaclyn Lantigua DO 11/21/2019 5:55 AM [employer]
--- NOTE | 2019-11-21 05:59 | CT ---
EXAM DESCRIPTION: CTA Chest CLINICAL HISTORY: sob COMPARISON: None Available. TECHNIQUE: CTA of the chest obtained following the uncomplicated intravenous administration of . 3-D/MIP reformatted images of the chest available for evaluation. FINDINGS: Chest: Pulmonary arteries: Contrast bolus is adequate.No filling defects identified in the pulmonary arteries to suggest pulmonary embolus. Thyroid:No abnormalities of the visualized thyroid. Great Vessels:Great vessels have normal anatomic configuration. Thoracic Aorta: Atherosclerotic calcification of the thoracic aorta. Normal caliber. Heart:No cardiomegaly, significant pericardial effusion, or coronary artery atherosclerosis Lymph Nodes:No enlarged mediastinal lymph nodes identified. Esophagus: Small hiatal hernia. Other:No additional findings. Lungs:Respiratory motion artifact. Discoid atelectasis in the right lower lobe. Pleura:No pleural effusion or pneumothorax. Trachea/Airways:No abnormalities of the visualized trachea or airways. Bones:No destructive osseous lesions. Upper Abdomen:Limited images of the upper abdomen demonstrate no definite abnormalities of visualized portions of the pancreas, spleen, adrenal glands, or kidneys. Hepatic cysts. Prior cholecystectomy.. IMPRESSION: 1. No pulmonary embolus. 2. Right lower lobe discoid atelectasis. This exam was performed according to our departmental dose-optimization program, which includes automated exposure control, adjustment of the mA and/or kV according to patient size and/or use of iterative reconstruction technique. Electronically signed by: Harsha Roca 11/21/2019 5:54 AM [employer]
[2019-11-21 06:54] VITALS: TEMP 99.3
[2019-11-21] MEDS ORDERED: IPRATROPIUM/ALBUTEROL 3 ML VIAL NEB ONE (07:03)
[2019-11-21 07:33] VITALS: BP 124/73; O2SAT 92
== END 2019-11-21 07:22 | disposition home or self-care (01) ==
LOC: ER 01:53
DX: R50.9 Fever, unspecified (principal); R06.02 Shortness of breath; N39.0 Urinary tract infection, site not specified; R06.82 Tachypnea, not elsewhere classified; R05 Cough; R19.7 Diarrhea, unspecified; J45.909 Unspecified asthma, uncomplicated; I10 Essential (primary) hypertension; E07.9 Disorder of thyroid, unspecified; Z85.828 Personal history of other malignant neoplasm of skin; Z79.899 Other long term (current) drug therapy; Z79.82 Long term (current) use of aspirin; Z88.5 Allergy status to narcotic agent
CPT/HCPCS: 71046; 71275; 74177; 80053; 81001; 83605; 84484; 85025; 85379; 87040; 87502; 93005; 94640; J0692; J7030; J7050; J7620

== ENCOUNTER → 2019-12-21 | Outpatient (CLI) | payer MEDICARE, OTHER | LOC: LAB.O 14:33 | PROVIDERS: ATTEND Internal Medicine Infectious Disease | DX: R78.81 Bacteremia (principal) ==

== ENCOUNTER → 2020-08-12 | Outpatient (CLI) | payer MEDICARE, OTHER | LOC: GMAE 10:32 | PROVIDERS: ATTEND Family Medicine | DX: E03.9 Hypothyroidism, unspecified (principal); I10 Essential (primary) hypertension ==

== ENCOUNTER → 2020-11-08 | Outpatient (CLI) | payer MEDICARE, OTHER | LOC: GMAE 11:08 | PROVIDERS: ATTEND Family Medicine | DX: E03.9 Hypothyroidism, unspecified (principal) ==

== ENCOUNTER → 2020-11-29 | Outpatient (CLI) | payer MEDICARE, OTHER | LOC: RESP 13:23 | PROVIDERS: ATTEND Family Medicine | DX: R05 Cough (principal) ==